=== PATIENT | female | born 1975 | race Caucasian/White ===

== ENCOUNTER 2016-11-01 16:28 | Emergency (ER) | payer OTHER ==
[2016-11-01 16:43] VITALS: BP 120/83; PULSE 116; TEMP 98.3; BMI 26.7
[2016-11-01] MEDS ORDERED: SODIUM CHLORIDE 1,000 ML IV STA (16:49)
--- NOTE | 2016-11-01 16:52 | PDOC ---
History of Present Illness - General History Source: Patient Exam Limitations: No Limitations - History of Present Illness Travel History: No Initial Comments: 11/01/16 17:00 41-year-old female presents to the ED for evaluation of continual vaginal bleeding for the past 4 months associated with a large fibroid. patient was sent here by Dr. Chadwick for admission will likely perform surgery during the stay since patient does have complaints of weakness, dizziness and fatigue. Patient denies fever, chills, dysuria, diarrhea, or nausea. Timing/Duration: reports: getting worse Quality: reports: moderate, cramping Abdominal Pain Onset Location: reports: suprapubic Pain Radiation: reports: no radiation Activities at Onset: reports: none Aggravating Factors: improves with: None Alleviating Factors: improves with: None <Neha Dorsey - Last Filed: 11/01/16 19:20> <Kiara Agrawal - Last Filed: 11/01/16 21:49> - General Chief Complaint: Vaginal Bleeding Stated Complaint: VAG BLEED Time Seen by Provider: 11/01/16 16:49 Past History - Past Medical History Asthma: No Cancer: No Cardiac Disorders: No Diabetes: No HTN: No Suicide Attempt (Hx): No Seizures: No Thyroid Disease: No Other medical history: none - Reproductive History (#): 1 - Immunization History Immunization Up to Date: Yes (traveled to [facility] from [facility] in january) - Psycho/Social/Smoking Cessation Hx Anxiety: No Suicidal Ideation: No Smoking History: Never smoked Have you smoked in the past 12 months: No Information on smoking cessation initiated: No Hx Alcohol Use: No Drug/Substance Use Hx: No Substance Use Type: None Hx Substance Use Treatment: No Patient Lives Alone: No Lives with/in: spouse/SO <Neha Dorsey - Last Filed: 11/01/16 19:20> <Kiara Agrawal - Last Filed: 11/01/16 21:49> - Past Medical History Allergies/Adverse Reactions: Allergies Allergy/AdvReac Type Severity Reaction Status Date / Time Penicillins Allergy Intermediate SWELLING. Verified 11/01/16 16:30 Home Medications: Ambulatory Orders Ibuprofen [Motrin -] 600 mg PO QID PRN 11/01/16 Oxycodone HCl/Acetaminophen [Percocet 5-325 mg Tablet] 1 - 2 tab PO Q6H PRN #20 tab MDD 6 11/01/16 Review of Systems - Review of Systems Able to Perform ROS?: Yes Constitutional: No: Symptoms Reported HEENTM: No: Symptoms Reported Respiratory: No: Symptoms reported Cardiac (ROS): No: Symptoms Reported ABD/GI: Yes: Abdominal cramping : Yes: Discharge (vaginal bleeding with clots) Musculoskeletal: No: Symptoms Reported Integumentary: No: Symptoms Reported Neurological: No: Symptoms reported Endocrine: No: Symptoms Reported Hematologic/Lymphatic: No: Symptoms Reported <Neha Dorsey - Last Filed: 11/01/16 19:20> *Physical Exam - Vital Signs Last Vital Signs Temp Pulse Resp BP Pulse Ox 98.3 F 116 H 18 120/83 100 11/01/16 16:31 11/01/16 16:31 11/01/16 16:31 11/01/16 16:31 11/01/16 16:31 - Physical Exam General Appearance: Yes: Nourished, Appropriately Dressed. No: Apparent Distress HEENT: negative: Pale Conjunctivae Neck: positive: Supple Respiratory/Chest: positive: Lungs Clear, Normal Breath Sounds. negative: Respiratory Distress, Accessory Muscle Use Cardiovascular: positive: Regular Rhythm, Tachycardia. negative: Murmur Female Pelvic Exam: positive: vaginal bleeding (bright red with clots) Gastrointestinal/Abdominal: positive: Soft, Distended (mid suprapubic), Tenderness, Mass (suprapubic) Musculoskeletal: negative: CVA Tenderness Extremity: negative: Pedal Edema Integumentary: positive: Normal Color, Warm, Moist <Neha Dorsey - Last Filed: 11/01/16 19:20> - Vital Signs Last Vital Signs Temp Pulse Resp BP Pulse Ox 98.3 F 116 H 18 120/83 100 11/01/16 16:31 11/01/16 16:31 11/01/16 16:31 11/01/16 16:31 11/01/16 16:31 <Kiara Agrawal - Last Filed: 11/01/16 21:49> Heart Score/ECG Review - ECG Intrepretation Rhythm: Regular Rhythm (rate 102 sinus rhythm.) <Neha Dorsey - Last Filed: 11/01/16 19:20> ED Treatment Course - LABORATORY CBC & Chemistry Diagram: 11/01/16 17:04 11/01/16 17:04 <Neha Dorsey - Last Filed: 11/01/16 19:20> - LABORATORY CBC & Chemistry Diagram: 11/01/16 17:04 11/01/16 17:04 - ADDITIONAL ORDERS Additional order review: Laboratory Results 11/01/16 11/01/16 11/01/16 17:04 17:04 17:04 INR Sodium 138 Potassium 4.7 Chloride 104 Carbon Dioxide 27 Anion Gap 7 L BUN 13 D Creatinine 0.6 Creat Clearance w eGFR > 60 Random Glucose 119 H D Calcium 9.3 Total Bilirubin 0.2 D AST 26 D ALT 25 D Alkaline Phosphatase 124 H D Total Protein 8.3 H Albumin 3.8 Urine Color Yellow Urine Appearance Cloudy Urine pH 6.0 Ur Specific Rowe 1.012 Urine Protein 1+ H Urine Glucose (UA) Negative Urine Ketones Negative Urine Blood 3+ H Urine Nitrite Negative Urine Bilirubin Negative Urine Urobilinogen Negative Ur Leukocyte Esterase 3+ H D Urine RBC 944 Urine WBC 288 Ur Epithelial Cells Rare Urine Bacteria Many Urine Yeast Many Urine HCG, Qual Negative Blood Type A POSITIVE Antibody Screen Negative 11/01/16 17:04 INR 1.02 Sodium Potassium Chloride Carbon Dioxide Anion Gap BUN Creatinine Creat Clearance w eGFR Random Glucose Calcium Total Bilirubin AST ALT Alkaline Phosphatase Total Protein Albumin Urine Color Urine Appearance Urine pH Ur Specific Rowe Urine Protein Urine Glucose (UA) Urine Ketones Urine Blood Urine Nitrite Urine Bilirubin Urine Urobilinogen Ur Leukocyte Esterase Urine RBC Urine WBC Ur Epithelial Cells Urine Bacteria Urine Yeast Urine HCG, Qual Blood Type Antibody Screen 11/01/16 17:04 RBC 4.21 MCV 85.4 MCHC 34.4 RDW 14.3 MPV 6.9 L Neutrophils % 62.9 Lymphocytes % 30.7 D Monocytes % 4.7 Eosinophils % 0.4 Basophils % 1.3 - Medications Given in the ED: ED Medications Discontinued Medications Generic Name Dose Route Start Last Admin Trade Name Freq PRN Reason Stop Dose Admin Sodium Chloride 1,000 mls @ 1,000 mls/hr 11/01/16 16:49 11/01/16 17:21 Normal Saline - IV 11/01/16 17:48 1,000 mls/hr ASDIR STA Administration Morphine Sulfate 4 mg 11/01/16 16:58 11/01/16 17:18 Morphine Injection - IVPUSH 11/01/16 16:59 4 mg ONCE ONE Administration <Kiara Agrawal - Last Filed: 11/01/16 21:49> Medical Decision Making - Medical Decision Making 11/01/16 178:01 Patient will continue vaginal bleeding with suspected large fibroid for the past 4 months. Patient is to be admitted to Dr. Chadwick. Patient also ordered for preop labs and ultrasound including urine . Patient also ordered for morphine secondary to discomfort and IV fluids secondary to elevated heart rate which may be related to blood volume loss versus discomfort 11/01/16 18:38 Laboratory Tests 11/01/16 11/01/16 11/01/16 17:04 17:04 17:04 WBC 8.1 Hgb 12.4 D Hct 36.0 MPV 6.9 L Neutrophils % 62.9 INR 1.02 Sodium 138 Potassium 4.7 Chloride 104 Carbon Dioxide 27 Anion Gap 7 L Creatinine 0.6 Creat Clearance w eGFR > 60 Random Glucose 119 H D Total Bilirubin 0.2 D AST 26 D ALT 25 D Alkaline Phosphatase 124 H D Total Protein 8.3 H Patient in route for ultrasound. Case discussed with Dr. Chadwick was states does want and abdominal CT with IV contrast to identify if the ureters are being compromised by the fibroid. 11/01/16 19:[address] Chadwick will agrees patient may be discharged home after the CT and ultrasound are resulted. She also recommended sending patient home with Percocet And follow-up in the clinic on so that she may be given iron tablets due to lack of insurance as a courtesy. <Neha Dorsey - Last Filed: 11/01/16 19:20> *DC/Admit/Observation/Transfer - Post Discharge Activity Activity Comments: 11/01/16 19:[address] Chadwick on and take Percocet for pain. Return to the ED if symptoms worsen. <Neha Dorsey - Last Filed: 11/01/16 19:20> <Kiara Agrawal - Last Filed: 11/01/16 21:49> Diagnosis at time of Disposition: Vaginal bleeding - Discharge Dispostion Disposition: HOME Condition at time of disposition: Good - Referrals Referrals: STAFF,NOT ON [Primary Care Provider] - Discharge Disposition - Discharge Dispostion Last Admission D/C Date: 06/28/16 <Neha Dorsey - Last Filed: 11/01/16 19:20> - Discharge Dispostion Admit: No <Kiara Agrawal - Last Filed: 11/01/16 21:49> - Diagnosis Vaginal bleeding - Discharge Dispostion Disposition: HOME Condition at time of disposition: Stable - Prescriptions Prescriptions: Oxycodone HCl/Acetaminophen [Percocet 5-325 mg Tablet] 1 - 2 tab PO Q6H PRN #20 tab MDD 6 PRN Reason: Pain - Referrals Referrals: STAFF,NOT ON [Primary Care Provider] - - Patient Instructions Printed Discharge Instructions: DI for Uterine Fibroids Additional Instructions: As discussed, please follow up with Dr. Carrera on MONDAY for further evaluation and iron supplementation. If you experience heavy vaginal bleeding ( more than one soaked pad an hour), worsening abdominal pain, fever, chills, nausea, vomiting, diarrhea, rectal bleeding, or any new or worsening symptoms, please return to the ER. Change of Disposition Decision <WillianNeha - Last Filed: 11/01/16 19:20> <Kiara Agrawal - Last Filed: 11/01/16 21:49> - Discharge/Departure ED Status: CT Discharge Diagnosis: Vaginal bleeding ED Disposition: HOME Condition: Good Referrals: STAFF,NOT ON [Primary Care Provider] - Plan - Order(s) Order(s): Orders Medication Instructions Recorded Ibuprofen [Motrin -] 600 mg PO QID PRN 11/01/16 Orders last 12 hours Category Date Time Status EKG [ELECTROCARDIOGRAM] [CARD] Stat Cardiology 11/01/16 16:57 Ordered HCG,QUALITATIVE URINE Stat Lab 11/01/16 17:04 Ordered UA [URINALYSIS] Stat Lab 11/01/16 17:04 Ordered - Laboratory CBC & Chemistry Diagram: 11/01/16 17:04 11/01/16 17:04 Lab/Micro Results: 11/01/16 11/01/16 11/01/16 17:04 17:04 17:04 INR 1.02 Sodium 138 Potassium 4.7 Chloride 104 Carbon Dioxide 27 Anion Gap 7 L BUN 13 D Creatinine 0.6 Creat Clearance w eGFR > 60 Random Glucose 119 H D Calcium 9.3 Total Bilirubin 0.2 D AST 26 D ALT 25 D Alkaline Phosphatase 124 H D Total Protein 8.3 H Albumin 3.8 Blood Type A POSITIVE Antibody Screen Negative 11/01/16 17:04 RBC 4.21 MCV 85.4 MCHC 34.4 RDW 14.3 MPV 6.9 L Neutrophils % 62.9 Lymphocytes % 30.7 D Monocytes % 4.7 Eosinophils % 0.4 Basophils % 1.3 - Medications Given in the ED: ED Medications Discontinued Medications Generic Name Dose Route Start Last Admin Trade Name Freq PRN Reason Stop Dose Admin Sodium Chloride 1,000 mls @ 1,000 mls/hr 11/01/16 16:49 11/01/16 17:21 Normal Saline - IV 11/01/16 17:48 1,000 mls/hr ASDIR STA Administration Morphine Sulfate 4 mg 11/01/16 16:58 11/01/16 17:18 Morphine Injection - IVPUSH 11/01/16 16:59 4 mg ONCE ONE Administration <Neha Dorsey - Last Filed: 11/01/16 19:20> - Order(s) Order(s): Orders Medication Instructions Recorded Ibuprofen [Motrin -] 600 mg PO QID PRN 11/01/16 Orders last 12 hours Category Date Time Status SERUM TEST Stat Lab 11/01/16 20:19 Ordered - Laboratory CBC & Chemistry Diagram: 11/01/16 17:04 11/01/16 17:04 Lab/Micro Results: 11/01/16 11/01/16 11/01/16 17:04 17:04 17:04 INR Sodium 138 Potassium 4.7 Chloride 104 Carbon Dioxide 27 Anion Gap 7 L BUN 13 D Creatinine 0.6 Creat Clearance w eGFR > 60 Random Glucose 119 H D Calcium 9.3 Total Bilirubin 0.2 D AST 26 D ALT 25 D Alkaline Phosphatase 124 H D Total Protein 8.3 H Albumin 3.8 Urine Color Yellow Urine Appearance Cloudy Urine pH 6.0 Ur Specific Rowe 1.012 Urine Protein 1+ H Urine Glucose (UA) Negative Urine Ketones Negative Urine Blood 3+ H Urine Nitrite Negative Urine Bilirubin Negative Urine Urobilinogen Negative Ur Leukocyte Esterase 3+ H D Urine RBC 944 Urine WBC 288 Ur Epithelial Cells Rare Urine Bacteria Many Urine Yeast Many Urine HCG, Qual Negative Blood Type A POSITIVE Antibody Screen Negative 11/01/16 17:04 INR 1.02 Sodium Potassium Chloride Carbon Dioxide Anion Gap BUN Creatinine Creat Clearance w eGFR Random Glucose Calcium Total Bilirubin AST ALT Alkaline Phosphatase Total Protein Albumin Urine Color Urine Appearance Urine pH Ur Specific Rowe Urine Protein Urine Glucose (UA) Urine Ketones Urine Blood Urine Nitrite Urine Bilirubin Urine Urobilinogen Ur Leukocyte Esterase Urine RBC Urine WBC Ur Epithelial Cells Urine Bacteria Urine Yeast Urine HCG, Qual Blood Type Antibody Screen 11/01/16 17:04 RBC 4.21 MCV 85.4 MCHC 34.4 RDW 14.3 MPV 6.9 L Neutrophils % 62.9 Lymphocytes % 30.7 D Monocytes % 4.7 Eosinophils % 0.4 Basophils % 1.3 - Medications Given in the ED: ED Medications Discontinued Medications Generic Name Dose Route Start Last Admin Trade Name Freq PRN Reason Stop Dose Admin Sodium Chloride 1,000 mls @ 1,000 mls/hr 11/01/16 16:49 11/01/16 17:21 Normal Saline - IV 11/01/16 17:48 1,000 mls/hr ASDIR STA Administration Morphine Sulfate 4 mg 11/01/16 16:58 11/01/16 17:18 Morphine Injection - IVPUSH 11/01/16 16:59 4 mg ONCE ONE Administration <Kiara Agrawal - Last Filed: 11/01/16 21:49>
[2016-11-01] MEDS ORDERED: morphine CARPU-JECT 2 MG/1 ML DISP.SYRIN IVPUSH ONE (16:58)
[2016-11-01] MEDS ORDERED: morphine CARPU-JECT 4 MG/1 ML DISP.SYRIN ONE (17:14)
[2016-11-01 17:15] LABS: BASOPHIL 1.3 % (0-2.0); EOSINOPHIL 0.4 % (0-4.5); MCH 29.3 pg (25.7-33.7); MCHC 34.4 g/dl (32.0-36.0); MEAN CELL VOLUME 85.4 fl (80-96); MEAN PLT VOLUME 6.9 fl (7.5-11.1); NEUTROPHILS 62.9 % (42.8-82.8); PLATELET COUNT 427 K/MM3 (134-434); RDW 14.3 % (11.6-15.6); WHITE BLOOD COUNT 8.1 K/mm3 (4.0-10.0)
[2016-11-01 17:28] LABS: INR 1.02 (0.82-1.09); PROTHROMBIN TIME (PATIENT) 11.2 SEC (9.98-11.88)
[2016-11-01 18:10] LABS: ALBUMIN 3.8 g/dl (3.4-5.0); ANION GAP 7 (8-16); CALCIUM 9.3 mg/dL (8.5-10.1); CO2 27 mmol/L (21-32); GLUCOSE,RANDOM 119 mg/dL (74-106)
[2016-11-01 18:16] LABS: ALK PHOS 124 U/L (45-117); BILIRUBIN,TOTAL 0.2 mg/dL (0.2-1.0); CREATININE 0.6 mg/dL (0.55-1.02); SGOT/AST 26 U/L (15-37); SGPT/ALT 25 U/L (12-78); TOT PROT 8.3 g/dl (6.4-8.2)
--- NOTE | 2016-11-01 19:36 | PDOC ---
*Physical Exam - Vital Signs Last Vital Signs Temp Pulse Resp BP Pulse Ox 98.3 F 116 H 18 120/83 100 11/01/16 16:31 11/01/16 16:31 11/01/16 16:31 11/01/16 16:31 11/01/16 16:31 - Physical Exam Comments: 11/01/16 19:35 Sign-out received from outgoing ER provider Willian. Pt interviewed and examined. Ancillary studies reviewed. H&H stable, plan is to send patient home with close follow up with Dr. Carrera on for iron supplementation in clinic. Awaiting serum preg, CT scan results. Urine preg neg. CT results do not indicate any obstruction of ureters. Will discharge as planned. Advised patient to take medications as prescribed and follow up with Dr. Carrera. Advised patient of signs and symptoms for return to ED; patient verbalized understanding and agrees to plan. ED Treatment Course - LABORATORY CBC & Chemistry Diagram: 11/01/16 17:04 11/01/16 17:04 - ADDITIONAL ORDERS Additional order review: Laboratory Results 11/01/16 11/01/16 11/01/16 17:04 17:04 17:04 INR 1.02 Sodium 138 Potassium 4.7 Chloride 104 Carbon Dioxide 27 Anion Gap 7 L BUN 13 D Creatinine 0.6 Creat Clearance w eGFR > 60 Random Glucose 119 H D Calcium 9.3 Total Bilirubin 0.2 D AST 26 D ALT 25 D Alkaline Phosphatase 124 H D Total Protein 8.3 H Albumin 3.8 Blood Type A POSITIVE Antibody Screen Negative 11/01/16 17:04 RBC 4.21 MCV 85.4 MCHC 34.4 RDW 14.3 MPV 6.9 L Neutrophils % 62.9 Lymphocytes % 30.7 D Monocytes % 4.7 Eosinophils % 0.4 Basophils % 1.3 - Medications Given in the ED: ED Medications Discontinued Medications Generic Name Dose Route Start Last Admin Trade Name Freq PRN Reason Stop Dose Admin Sodium Chloride 1,000 mls @ 1,000 mls/hr 11/01/16 16:49 11/01/16 17:21 Normal Saline - IV 11/01/16 17:48 1,000 mls/hr ASDIR STA Administration Morphine Sulfate 4 mg 11/01/16 16:58 11/01/16 17:18 Morphine Injection - IVPUSH 11/01/16 16:59 4 mg ONCE ONE Administration *DC/Admit/Observation/Transfer Diagnosis at time of Disposition: Vaginal bleeding - Discharge Dispostion Disposition: HOME Condition at time of disposition: Good - Prescriptions Prescriptions: Oxycodone HCl/Acetaminophen [Percocet 5-325 mg Tablet] 1 - 2 tab PO Q6H PRN #20 tab MDD 6 PRN Reason: Pain - Referrals Referrals: STAFF,NOT ON [Primary Care Provider] - - Patient Instructions Printed Discharge Instructions: DI for Uterine Fibroids Additional Instructions: As discussed, please follow up with Dr. Carrera on MONDAY for further evaluation and iron supplementation. If you experience heavy vaginal bleeding ( more than one soaked pad an hour), worsening abdominal pain, fever, chills, nausea, vomiting, diarrhea, rectal bleeding, or any new or worsening symptoms, please return to the ER.
--- NOTE | 2016-11-01 19:51 | CON.OBG ---
Consult Consult Specialty:: english drawer Referred by:: Willian Solomon Reason for Consultation:: fibroid uterus , bleeding & pain - History of Present Illness Chief Complaint: 41 yrs c/o severe abd pain pelvic for few days , intolerable since today am & heavy bleeding since her LD by c/section on 06/24/16 History of Present Illness: pt is known case of large fibroid uterus since her first pregn . pt did not have pain before but since LD by c/section she has been experiencing abd pelvic pain on &off today pain scale 10/10 . she has not stopped bleeding since LD on 06/25/16 . bleeding mild to moderate to heavy variable . she is breast feeding - History Source History Provided By: Patient, Medical Record Limitations to Obtaining History: No Limitations - Past Medical History PLANT TECH: No: Migraine, Seizure Cardio/Vascular: No: HTN, Murmur Pulmonary: No: Asthma Gastrointestinal: No: Ascites, Gastritis, GERD Hepatobiliary: No: Cirrhosis, Hepatitis A, Hepatitis B, Hepatitis C Renal/: Yes: Other (h/o frequency of urination ). No: UTI Reproductive: Yes: Other (h/o abn pap 05/21/15 LGSIL & no16/18 HR HPV pos . colposcopy unsatisfactory, ecc neg, Repeat pap in 12/08/15 ASCUS , non 16/ 18 HR HPV Pos ) ...LMP: 03/16/15 (post LD 06/25/16) ...: No ...: 2 (sp ab in 05/29/2015 ) ...Para: 1 (c/sec 06/25/16 37.5 wks male 6'13" 9/9 ) Heme/Onc: Yes: Anemia (before rx po iron & pnv ) Infectious Disease: Yes: STD's (non 16/18 HR HPV pos ). No: HIV Psych: No: Addictions, Anxiety, Depression Musculoskeletal: No: Bursitis Rheumatology: No: Vasculitis ENT: No: Allergic Rhinitis Endocrine: No: Diabetes Mellitus, Hyperthyroidism, Hypothyroidism Additional Medical History: h/o Rt breast cyst , aspiration done by Breast surgeon in 11/2015 - Past Surgical History Past Surgical History: Yes: (06/25/16 LFTC/S due to large fibroids ,.) - Alcohol/Substance Use Hx Alcohol Use: No History of Substance Use: reports: None - Smoking History Smoking history: Never smoked Have you smoked in the past 12 months: No Home Medications - Allergies Allergies/Adverse Reactions: Allergies Allergy/AdvReac Type Severity Reaction Status Date / Time Penicillins Allergy Intermediate SWELLING. Verified 11/01/16 16:30 - Home Medications Home Medications: Ambulatory Orders Ibuprofen [Motrin -] 600 mg PO QID PRN 11/01/16 Physical Exam-[facility] Vital Signs: Vital Signs Temperature 98.3 F 11/01/16 16:31 Pulse Rate 116 H 11/01/16 16:31 Respiratory Rate 18 11/01/16 16:31 Blood Pressure 120/83 11/01/16 16:31 O2 Sat by Pulse Oximetry (%) 100 11/01/16 16:31 Constitutional: Yes: Mild Distress (after receiving morphine in ER) Eyes: Yes: WNL HENT: Yes: WNL, Normocephalic Neck: Yes: WNL Cardiovascular: Yes: WNL, Tachycardia (116/min) Respiratory: Yes: WNL, CTA Bilaterally Gastrointestinal: Yes: WNL, Normal Bowel Sounds ...Rectal Exam: Yes: WNL Renal/: Yes: Menses Present (since LD), Vaginal Bleeding. No: CVA Tenderness - Left, CVA Tenderness - Right, Pelvis: Yes: Tenderness (pelvic) External Genitalia: Yes: Normal Internal Exam Deferred: Yes Vaginal Exam: Yes: Bleeding (moderate to heavy) Cervix: Yes: Normal, Bleeding Uterus: Yes: Freely Moveable, Anteverted, Enlarged (size 16 weeks size ut), Firm , Mass (fibroid ut), Tender Adnexa: Normal: Bilateral (unable to evaluate ), Not Palpable: Bilateral Breast(s): Yes: WNL Musculoskeletal: Yes: WNL Extremities: Yes: WNL. No: Calf Tenderness Edema: No Integumentary: Yes: Incision (pfannensteil incision scar) Neurological: Yes: WNL, Alert, Oriented ...Motor Strength: WNL Psychiatric: Yes: WNL, Alert, Oriented Problem List - Problems (1) Fibroid Code(s): D25.9 - LEIOMYOMA OF UTERUS, UNSPECIFIED Qualifiers: Uterine leiomyoma location: intramural Qualified Code(s): D25.1 - Intramural leiomyoma of uterus (2) Menorrhagia with irregular cycle Code(s): N92.1 - EXCESSIVE AND FREQUENT MENSTRUATION WITH IRREGULAR CYCLE Assessment/Plan 41 yrs , s/p c/section 4 months ago with multiple lfobroids, large has continuous bleeding since Ld & pain possible degenration of fibroid suspected due to involution of uterus post plan us done [id number] cm , largest fibroid posterior 9.2cmx1.5cm bulging into cavity , adnexa not well visualized ct scan to check proximity of ureters to uterus & fibroids .still pending discharge from ER po percocet PRN will schedule Abd Myomectomy posible NIKKO from the clinic
[2016-11-01 20:41] LABS: URINE APPEARANCE CLOUDY; URINE BILIRUBIN NEGATIVE (NEGATIVE); URINE COLOR YELLOW; URINE GLUCOSE (UA) NEGATIVE (NEGATIVE); URINE KETONE NEGATIVE (NEGATIVE); URINE NITRITE NEGATIVE (NEGATIVE); URINE UROBILINOGEN NEGATIVE E.U./dl (0.2-1.0)
[2016-11-01 20:42] LABS: URINE BLOOD 3+ (NEGATIVE); URINE LEUK ESTERASE 3+ (NEGATIVE); URINE PROTEIN 1+ (NEGATIVE)
[2016-11-01 20:44] LABS: URINE BACTERIA MANY /hpf (NONE SEEN); URINE RBC 944 /hpf (0-3); URINE WBC 288 /hpf (3-5); YEAST MANY
--- NOTE | 2016-11-03 00:33 | EKG ---
Test Reason : Blood Pressure : / mmHG Vent. Rate : 102 BPM Atrial Rate : 102 BPM P-R Int : 160 ms QRS Dur : 080 ms QT Int : 336 ms P-R-T Axes : 059 021 004 degrees QTc Int : 437 ms SINUS TACHYCARDIA LOW VOLTAGE QRS BORDERLINE ECG NO PREVIOUS ECGS AVAILABLE Confirmed by RADHA ZAVALETA MD ([id number]) on 11/03/2016 12:32:29 AM Referred By: Confirmed By:RADHA ZAVALETA MD
== END 2016-11-01 22:15 | disposition home or self-care (01) ==
LOC: JER 16:28 → UNDOADMOB 17:19 → JERBED 17:19 → JER 22:15
PROC: 3E033NZ Introduction of Analgesics, Hypnotics, Sedatives into Peripheral Vein, Percutaneous Approach (ICD-10-PCS; principal; 2016-11-01)
PROC: 3E0337Z Introduction of Electrolytic and Water Balance Substance into Peripheral Vein, Percutaneous Approach (ICD-10-PCS; 2016-11-01)
DX: N93.9 Abnormal uterine and vaginal bleeding, unspecified (principal); N92.1 Excessive and frequent menstruation with irregular cycle; D25.1 Intramural leiomyoma of uterus
CPT/HCPCS: 36415; 74177-TC; 76856-TC; 80053; 81003; 81015; 84703; 85025; 85610; 86850; 86900; 86901; 93005; 93010; 96361; 96374; 99285-25

== ENCOUNTER 2016-11-10 05:21 | Inpatient (IN) | payer OTHER ==
--- NOTE | 2016-11-10 10:56 | HP ---
Past Medical History - Primary Care Physician PCP:: Latisha Chadwick - Admission Chief Complaint: 41yrs known c/o Large fibroid uterus is c/o pelvic pain since LD & pain increasing for past 1 week , heavy bleding since LD is admitted for abdominal myomectomy , possible husterectomy . LD by c/section on 06/25/16 . pt c/o fever at 103 at night . History of Present Illness: pt was seen IN ER on 11/01/16 for ac pain bleeding US pelvic & CT scan was done .pt received iv fluids & pain meds was sent home CTscan report multiple fibroids, largest fibroid is 12x11.2x11 cm . kidney no hydronephrosisi . Pelvic US ut largr 18.1x 12.1x11.3 cm ,multiple post fibroids, , largest is 9.2cmx8.8x7.9 cm . Ovaries normal. Pt knows she has fibroids since her 1st in 2014. since then fibroids are enlarged in size . she was not symptomatic during last but since LD by c/section she is experiencing pain , she has been on tylenol or motrin prn & has not stopped bleeding since then. she has been taking her iron & pnv regularly Past MH : 28-30 days regular, heavy , painful . History Source: Patient, Medical Record Limitations to Obtaining History: No Limitations - Past Medical History BOX STRAPPER: No: CVA, Migraine Cardiovascular: No: HTN, Murmur Pulmonary: No: Asthma Gastrointestinal: Yes: Constipation Renal/: Yes: Other (h/o frequency of urination ). No: UTI Reproductive: Yes: Other ( 05/21/15 Pap LGSIL , NON 16/18 HPV Pos 06/30/15 Colposcopy : unsatisfactory , ecc neg 12/08/15 Pap ASCUS. pt is not ) ...: 2 ...Para: 1 (06/25/16,LFTC/S 6'13" 9/9 at 37.5 weeks ) ...Term: 1 ...Spon : 1 (05/29/15 D&c done ) Heme/Onc: Yes: Anemia (before rx po iron & pnv ) Infectious Disease: Yes: STD's (non 16/18 HR HPV pos ). No: HIV Endocrine: No: Diabetes Insipidus, Diabetes Mellitus, Hyperthyroidism Additional Medical History: h/o Rt breast cyst , aspiration done by Breast surgeon in 11/2015 - Past Surgical History Past Surgical History: Yes: (06/25/16 LFTC/S due to large fibroids ,.) Hx Myomectomy: No Hx Transabdominal Cerclage: No Additional Surgical History: h/o d&c done for sp ab in 2014 - Smoking History Smoking history: Never smoked Have you smoked in the past 12 months: No - Alcohol/Substance Use Hx Alcohol Use: No History of Substance Use: reports: None - Social History History of Recent Travel: No Home Medications - Allergies Allergies/Adverse Reactions: Allergies Allergy/AdvReac Type Severity Reaction Status Date / Time Penicillins Allergy Intermediate SWELLING. Verified 11/09/16 10:36 - Home Medications Home Medications: Ambulatory Orders Ibuprofen [Motrin -] 600 mg PO QID PRN 11/01/16 Acetaminophen 650 mg PO Q6H PRN 11/09/16 Iron,Carbonyl/Ascorbic Acid [Iron 100-Vitamin C Tablet] 1 each PO DAILY Pnv95/Ferrous Fumarate/FA [ Caplet] 1 DAILY 11/09/16 Physical Exam-FOREIGN LAW CONSULTANT Vital Signs: Temp 101 . Constitutional: Yes: Well Nourished, Mild Distress Eyes: Yes: WNL HENT: Yes: WNL Neck: Yes: WNL Cardiovascular: Yes: WNL Respiratory: Yes: WNL Gastrointestinal: Yes: WNL, Normal Bowel Sounds. No: Distention Renal/: Yes: WNL, Vaginal Bleeding. No: CVA Tenderness - Left, CVA Tenderness - Right, External Genitalia: Yes: Normal Internal Exam Deferred: Yes Vaginal Exam: Yes: Bleeding Cervix: Yes: Normal, Bleeding. No: Cerv Motion Tenderness Uterus: Yes: Anteverted, Enlarged (ut large 16-weeks enlarged , mobile , tender) , Firm, Tender Adnexa: Normal: Bilateral, Not Palpable: Bilateral Breast(s): Yes: WNL (not engorged), Other (milk secretion) Musculoskeletal: Yes: WNL, Other (pt breast feeding .) Extremities: Yes: WNL. No: Calf Tenderness Edema: No Integumentary: Yes: Incision (recent surgery, pfannensteil scar) Neurological: Yes: WNL, Alert, Oriented ...Motor Strength: WNL Psychiatric: Yes: WNL, Alert, Oriented Labs: Laboratory Tests 06/25/16 11/01/16 11/01/16 00:01 17:04 17:04 WBC 8.1 RBC 4.21 Hgb 12.4 D Hct 36.0 Plt Count 427 D Neutrophils % 62.9 Lymphocytes % 30.7 D Monocytes % 4.7 INR 1.02 Sodium Potassium Chloride Carbon Dioxide BUN Creatinine Random Glucose Uric Acid 5.5 Calcium Total Bilirubin AST ALT Alkaline Phosphatase Serum , Qual Urine Protein Urine Blood Ur Leukocyte Esterase Urine RBC Urine WBC Urine Bacteria 11/01/16 11/01/16 11/09/16 17:04 17:04 10:20 WBC RBC Hgb Hct Plt Count Neutrophils % Lymphocytes % Monocytes % INR Sodium 138 Potassium 4.7 Chloride 104 Carbon Dioxide 27 BUN 13 D Creatinine 0.6 Random Glucose 119 H D Uric Acid Calcium 9.3 Total Bilirubin 0.2 D AST 26 D ALT 25 D Alkaline Phosphatase 124 H D Serum , Qual Negative Urine Protein 1+ H Urine Blood 3+ H Ur Leukocyte Esterase 3+ H D Urine RBC 944 Urine WBC 288 Urine Bacteria Many Problem List - Problem (1) Fibroid uterus Code(s): D25.9 - LEIOMYOMA OF UTERUS, UNSPECIFIED Qualifiers: Uterine leiomyoma location: intramural Qualified Code(s): D25.1 - Intramural leiomyoma of uterus (2) Menorrhagia with irregular cycle Code(s): N92.1 - EXCESSIVE AND FREQUENT MENSTRUATION WITH IRREGULAR CYCLE (3) Pelvic pain Code(s): R10.2 - PELVIC AND PERINEAL PAIN Assessment/Plan 41 yrs Large multiple , enllarging fibroid uterus , with pelvic pain , possible degenration of fibroiid , menorrhagia, continuous non stop bleeding since LD c/section 4 months ago . Plan Abdominal Myomectomy possible Abd Hysterectomy . risk, benefits, alt not ltd to hemorrhage, infection, possible tranfusuion, injury bladder, bowel, ureter notified . Note pt has h/o 103 temp last night & 101 now , she has frequency of urination , , no dysuria ua fron 11/01 possible urine infection or possible contamination from vaginal bleeding breast is not engorged . I suspect possible UTI or due to fibroid degenration discuss with anesthesiologist, cancel the surgery due to fever plan urine c/s & cbc repeat today rx po Levaquin 500 mg bid is given
[2016-11-10] MEDS ORDERED: ROPIVACAINE HCL 0.5% 30ML VIAL ONE (13:29)
[2016-11-10] MEDS ORDERED: MIDAZOLAM HCL 2 MG/2 ML SINGLE DOSE VIAL ONE ×2 (13:34)
[2016-11-10 16:16] LABS: BASOPHIL 0.3 % (0-2.0); MCH 27.7 pg (25.7-33.7); MCHC 32.7 g/dl (32.0-36.0); MEAN CELL VOLUME 84.9 fl (80-96); MEAN PLT VOLUME 6.9 fl (7.5-11.1); NEUTROPHILS 67.4 % (42.8-82.8); PLATELET COUNT 567 K/MM3 (134-434); WHITE BLOOD COUNT 11.6 K/mm3 (4.0-10.0)
== END 2016-11-10 14:30 | disposition home or self-care (01) | DRG 532 ==
LOC: JSAMEDAYSX 05:21
PROVIDERS: ADMIT Obstetrics & Gynecology; ATTEND Obstetrics & Gynecology
DX: D25.1 Intramural leiomyoma of uterus (principal); R10.2 Pelvic and perineal pain; K59.09 Other constipation; D64.9 Anemia, unspecified; N92.1 Excessive and frequent menstruation with irregular cycle; R50.9 Fever, unspecified; Z53.8 Procedure and treatment not carried out for other reasons
CPT/HCPCS: 36415; 85025; 87086

== ENCOUNTER 2019-08-15 08:15 | Inpatient (IN) | payer OTHER ==
[2019-08-15] MEDS ORDERED: ELECTROLYTE-148 SOLN 500 ML IV ONE (09:20)
[2019-08-15 09:24] LABS: BASO % 0.3 % (0-2.0); EOS % 0.5 % (0-4.5); HEMOGLOBIN 9.3 GM/dL (10.7-15.3); LYMPH % 31.9 % (8-40); MCH 31.4 pg (25.7-33.7); MCHC 33.2 g/dl (32.0-36.0); MEAN CELL VOLUME 94.5 fl (80-96); MEAN PLT VOLUME 7.6 fl (7.5-11.1); NEUT % 59.3 % (42.8-82.8); PLATELET COUNT 145 K/MM3 (134-434); RBC 2.97 M/mm3 (3.60-5.2); RDW 14.2 % (11.6-15.6); WHITE BLOOD COUNT 3.8 K/mm3 (4.0-10.0)
[2019-08-15] MEDS ORDERED: ELECTROLYTE-148 SOLN 1,000 ML IV SCH (09:30)
[2019-08-15] MEDS ORDERED: ONDANSETRON 4 MG/2 ML VIAL IVPUSH PRN (09:31)
[2019-08-15] MEDS ORDERED: DEXAMETHASONE SOD PHOSPHATE 4 MG/1 ML VIAL ONE (09:44)
[2019-08-15] MEDS ORDERED: OXYTOCIN 10 UNITS/ML VIAL ONE ×2 (09:44→11:01)
[2019-08-15] MEDS ORDERED: KETOROLAC TROMETHAMINE 30 MG/1 ML VIAL ONE (09:44)
[2019-08-15] MEDS ORDERED: ceFAZolin SODIUM 1 GM VIAL ONE (09:44)
[2019-08-15 09:48] LABS: INR 1.08 (0.83-1.09); PROTHROMBIN TIME (PATIENT) 12.8 SEC (9.7-13.0)
[2019-08-15 09:51] LABS: ACTIVATED PTT 39.3 SECONDS (25.2-36.5)
[2019-08-15 09:55] LABS: BLOOD UREA NITROGEN 4.7 mg/dL (7-18); POTASSIUM 4.5 mmol/L (3.5-5.1)
--- NOTE | 2019-08-15 10:10 | HP ---
Past Medical History - Primary Care Physician PCP:: Latisha Chadwick - Admission Chief Complaint: 44 yrs , 36.5 weeks gestation , previous c/section with SROM 7.00 AM followed by UC . she requests for repeat c/section History of Present Illness: pnc at [address] [place] [address] . wt gain panel : 02/14/19 A Pos, Hbsag neg, hep c nr, Rpr nr, Hiv neg, Rubella immune, Varicella immune , Pap Nilm , Hpv neg , Gc/Ct neg 06/18/19 : 1 hr Gtt 177, --followed by 3 hr gtt on --- 93/230/140/157 Quantieron - neg, 08/06/19 36 weeks cultures : gc/ct neg, GBS neg , hiv neg , h/h/ 13.8 40.2 ,plt 259 sonogram done by [facility] pt was referred for genetic counselling due to AMA, but she informed M her actual age is 33 yrs NT screen & AFP neg sono 03/13/19 : 14.1 weeks,SLIUP anatomy sono wnl, no mention of fibroids 06/12/19 28.2 weeks vx, ant placenta, 2'15" ramonita 14.2 h/o GDM , diet controlled . h/o yeast infection treated during History Source: Patient, Medical Record Limitations to Obtaining History: No Limitations - Past Medical History Gastrointestinal: Yes: Constipation Renal/: No: UTI Reproductive: Yes: Fibroids (h/o fibroids known during 2016 11/2016 lospitalized for menorrhagia, anemia , ? degenration of fibroids , bleeding disorder , pt referred to [facility] . h/o hysteroscopy ? submucous myomectomy done . diagnosis of endomyometritis 12/2016), Other (h/o abn pap 05/11/15 : LSIL, hpv high risk pos 02/14/15 : NILM , HPV neg) ...: 3 ...Para: 1 (06/28/16 primary c/section for fibroids , h/o 2 pack cell transfusion ) ...Term: 1 ...: 0 ...Spon : 1 (2014 ) ...Induced : 0 ...Multiple Gestation: 0 ...LMP: 12/01/18 ... Weeks Gestation by Dates: 36.5 ...EDC by Dates: 09/07/19 ...EDC by Sono: 09/10/19 Heme/Onc: Yes: Anemia (before rx po iron & pnv ) Infectious Disease: Yes: STD's (non 16/18 HR HPV pos ). No: AIDS, HIV, Tuberculosis Psych: No: Addictions, Anxiety, Bipolar, Depression, Panic, Psychosis, Schizophrenia, Other Additional Medical History: h/o Rt breast cyst , aspiration done by Breast surgeon in 11/2015 - Past Surgical History Past Surgical History: Yes: (06/25/16 LFTC/S due to large fibroids ,.) Hx Myomectomy: Yes (? h/o hysteroscopic myomectomy at [facility] in 12/2016 ) Hx Transabdominal Cerclage: No - Smoking History Smoking history: Never smoked Have you smoked in the past 12 months: No - Alcohol/Substance Use Hx Alcohol Use: No History of Substance Use: reports: None - Social History History of Recent Travel: No Home Medications - Allergies Allergies/Adverse Reactions: Allergies Allergy/AdvReac Type Severity Reaction Status Date / Time Penicillins Allergy Intermediate SWELLING. Verified 08/15/19 09:50 - Home Medications Home Medications: Ambulatory Orders Vitamins (Sjr) - 1 tab PO DAILY tablet 11/28/16 Physical Exam - Maternity Vital Signs: Vital Signs Temperature 97.6 F 08/15/19 08:58 Pulse Rate 81 08/15/19 08:58 Respiratory Rate 20 08/15/19 08:58 Blood Pressure 110/76 08/15/19 08:58 O2 Sat by Pulse Oximetry (%) Constitutional: Yes: Well Nourished, Mild Distress Eyes: Yes: WNL HENT: Yes: WNL, Normocephalic Neck: Yes: WNL Cardiovascular: Yes: WNL, Regular Rate and Rhythm Lungs: Clear to auscultation Breast(s): Yes: WNL - Abdominal Exam/OB Fundal Height: 40 Number of Fetuses: Single Presentation: Vertex Contractions: Yes Regularity: Irregular (2-5 min) Intensity: Moderate Monitor Mode: External Heart Rate (range): 130 Heart Rate Location: Midline Category: I Accelerations: Uniform Decelerations: None - Vaginal Exam/OB Vaginal Bleediing: No Speculum Exam: Yes Dilatation (cm): FT Effacement (%): 70 Amniotic Membrane Status: Ruptured Nitrazine Test: Positive Amniotic Fluid: Yes: Clear Presentation: Vertex/Position (exam at 9.40 AM) Station: -3 - Physical Exam Musculoskeletal: Yes: WNL Extremities: Yes: WNL. No: Calf Tenderness Edema: LLE: 1+, RLE: 1+ Integumentary: Yes: Incision (pfannensteil scar) Deep Tendon Reflex Grade: Normal +2 ...Motor Strength: WNL Psychiatric: Yes: WNL, Alert, Oriented - Labs Lab Results: CBC, BMP 08/15/19 09:10 08/15/19 09:10 Laboratory Tests 08/15/19 08/15/19 09:10 09:10 PT with INR 12.80 INR 1.08 PTT (Actin FS) 39.3 H Blood Type A POSITIVE Antibody Screen Negative Hemorrhage Risk Assessment - Risk Factors Medium Risk Factors: Yes: Prior , uterine surgery,or multiple laparotomies Risk Score: 1 Risk Level: Medium Risk Problem List - Problems (1) 36 to 37 weeks gestation of Code(s): [id number] - (2) SROM (spontaneous rupture of membranes) Code(s): FUT1439 - (3) Previous section Code(s): Z98.891 - HISTORY OF UTERINE SCAR FROM PREVIOUS SURGERY (4) Labor established Code(s): DZW2403 - (5) Anemia Code(s): D64.9 - ANEMIA, UNSPECIFIED Qualifiers: Anemia type: iron deficiency Iron deficiency anemia type: inadequate dietary iron intake Qualified Code(s): D50.8 - Other iron deficiency anemias (6) Diet controlled gestational diabetes mellitus (GDM) Code(s): O24.410 - GESTATIONAL DIABETES MELLITUS IN , DIET CONTROLLED Qualifiers: Trimester: third trimester Qualified Code(s): O24.410 - Gestational diabetes mellitus in , diet controlled Assessment/Plan 44 yrs ( actual pt states she is 33 yrs old ) , , 36.5 weeks gestation , srom, GDM diet controlled , ,previous c/section , anemia in labor . Plan : Repeat LFT C/section r/b/a of c/sec discussed. since she is anemic , previous h/o transfusion , bleeding disorder & fibroids , i also discussed with her possibility of transfusion & hysterectomy in c/o emergency, hemorrhage on ,the table
[2019-08-15] MEDS ORDERED: CITRIC ACID/SODIUM CITRATE 30 ML UNIT-DOSE CUP PO ONE (10:30)
[2019-08-15] MEDS ORDERED: CLINDAMYCIN PHOSPHATE 600 MG/4 ML VIAL ONE (10:33)
[2019-08-15] MEDS ORDERED: ePHEDrine SULFATE 50 MG/1 ML AMPULE ONE (10:38)
[2019-08-15 11:30] LABS: CALCIUM 9.4 mg/dL (8.5-10.1); CREATININE 0.9 mg/dL (0.55-1.3)
[2019-08-15] MEDS ORDERED: METHYLERGONOVINE MALEATE 0.2 MG/1 ML AMP IM PRN (12:15)
[2019-08-15] MEDS ORDERED: OXYTOCIN 20 UNITS in 0.9% NS 20 UNIT/1,000 ML INFUS.BAG IV SCH (12:15)
--- NOTE | 2019-08-15 12:27 | PN ---
Progress Note (short form) - Note Progress Note: I assisted Dr. Snow at repeat section for the entirety of the case.
--- NOTE | 2019-08-15 12:28 | PN ---
Delivery - Delivery Section: Repeat, Low Flap Transverse (Indication : 36.5 weeks, previous c/s srom, in labor , anemia) Type of Anesthesia: Spinal Episiotomy/Laceration: None EBL (cc): 700 (foey out put 100 ml rosie color ) Delivery, Single - Stages of Labor Date 1st Stage Initiatied: 08/15/19 Time 1st Stage Initiated: 07:00 Date of Delivery: 08/15/19 Time of Delivery: 10:43 Time Placenta Delivered: 10:44 Placenta: Yes: Manual Removal, Uterine Exploration - Condition of Infant Building Construction Teacher/Dinkey Press Operator Present: Yes Name: Ancelmo Benítez Gender: Female Weight: 6 lb 12 oz Position: Right, OT Total Hours ROM (Hrs/Mins): 3hrs 44min - 1 Minute Total Score: 9 5 Minutes Total Score: 9 - Feeding Plan Initial Plan: Exclusive throughout hospitalization Remarks - Remarks Remarks: 44 yrs , 36.5 weeks admitted for srom, previous c/s in labor pnc at [address] [place] [address] gbs neg anemia noted intraop course uneventful clindamicin 600 mg intraop given
--- NOTE | 2019-08-15 12:34 | OP ---
Operative Note - Note: Operative Date: 08/15/19 Pre-Operative Diagnosis: 36.5 weeks, previousc/s , srom, inlabor , anemia Operation: repeat lftc/s Findings: 10.43 AM , baby girl, 9/9, wt 6'12", vx rot position Dr Benítez present in the OR Surgeon: Latisha Chadwick In Service Coordinator: Zbigniew Castillo Anesthesiologist/[employer] RADIO OPERATOR: Delfino Hernandez Anesthesia: Spinal Specimens Removed: cord segment for cord blood gas. cord blood. placenta Estimated Blood Loss (mls): 700 Drains, Volume Out (mls): 100 (monet output, rosie color ) Fluid Volume Replaced (mls): 1,100 (iv clindamicin intraop given 600 mg ) Operative Report Dictated: Yes
--- NOTE | 2019-08-15 16:11 | OP ---
DATE OF OPERATION: 08/15/2019 PREOPERATIVE DIAGNOSES: 36.5 weeks, previous section, spontaneous rupture of membranes in labor, anemia. POSTOPERATIVE DIAGNOSES: 36.5 weeks, previous section, spontaneous rupture of membranes in labor, anemia. OPERATION DONE: Repeat low-flap transverse section. SURGEON: Latisha Chadwick MD DIVIDEND DEPOSIT ENTRY CLERK SURGEON: Zbigniew Castillo MD ANESTHESIOLOGIST: RISHI Magana- RIGGING FOREMAN: Ancelmo Benítez MD ANESTHESIA: Spinal. FINDINGS: This is a 44-year-old, 3, para 1-0-1-1 who is 36.5 weeks, presented with rupture of membranes, Nitrazine positive, and cervix was fingertip, 70%, membranes ruptured and vertex presentation. She was mohini between 2 and 5 minutes regularly. PROCEDURE: Abdomen was shaved, prepped. Sue catheter was placed, and SCD stockings were placed. She was taken to the operating room table, and spinal anesthesia was given. Patient was placed in supine position. Abdomen was painted and draped in usual manner. Pfannenstiel incision was made through previous scar, skin, and subcutaneous tissue. Anterior rectus sheath was incised transversely. Bleeding points were clamped and cauterized. Rectus muscle was from the rectus sheath. Parietal peritoneum was opened vertically. Low-flap bladder peritoneum was incised transversely, and the lower uterine segment was incised transversely. Baby girl was delivered at 10:43 a.m. from ROT position. Cord was clamped. Baby was handed over to the train starter. Baby's Apgars were 9 and 9, and the weight was 6 pounds 12 ounces. Cord segment was cut for the cord blood gas, and the cord blood was collected. Placenta was removed completely with the membranes. Uterine cavity was cleaned properly, and there were no submucous fibroids, and there were no, clinically, fibroids noted. All the fibroids on the uterus and the large uterus were noted. Then, the closure of the uterine incision was done with Vicryl 1 suture. First layer was a continuous locking with a Vicryl 1 suture. Second layer was a continuous, intermittently locking with a Vicryl 1 suture. Hemostasis was checked. There were peritoneal adhesions before, and these were no different. Peritoneum was identified. So, the known bladder peritoneum was closed, and the parietal irrigation was done. Sponge, instrument, and needle count was correct, and the parietal peritoneum was closed with Vicryl 2-0 suture. Muscles were approximated together with interrupted suture underneath the rectus sheath flaps. Hemostasis was checked. Anterior rectus sheath was closed with Vicryl suture. Hemostasis was checked. Skin was released from the subcutaneous tissues, clot, and then, the subcutaneous tissue hemostasis was achieved via cauterization and the subcutaneous tissue interrupted sutures were taken with Vicryl 0 suture interrupted sutures, and the skin was approximated with clnit. Blood clots were removed from the vagina, and a pressure dressing was given. Patient was transferred to the recovery room in stable condition. Estimated blood loss was 700 mL. Urine output intraoperatively was 100 mL, it was rosie colored. She received 1100 of IV fluids and she received clindamycin 600 mg prior to the incision. Kalyn LEBRON/[id number]
[2019-08-15] MEDS: CLINDAMYCIN 600MG PREMIX IVPB 600 MG/50 ML BAG IVPB SCH (18:02)
[2019-08-16] MEDS: CLINDAMYCIN 600MG PREMIX IVPB 600 MG/50 ML BAG IVPB SCH ×2 (01:02→09:08)
[2019-08-16] MEDS: IBUPROFEN 800 MG/8 ML IJ IVPB PRN ×2 (02:00→10:51)
[2019-08-16 07:21] LABS: BASO % 0.3 % (0-2.0); EOS % 0.5 % (0-4.5); HEMATOCRIT 35.4 % (32.4-45.2); HEMOGLOBIN 12.1 GM/dL (10.7-15.3); LYMPH % 20.5 % (8-40); MCH 31.8 pg (25.7-33.7); MCHC 34.3 g/dl (32.0-36.0); MEAN CELL VOLUME 92.6 fl (80-96); MEAN PLT VOLUME 7.5 fl (7.5-11.1); MONO % 8.9 % (3.8-10.2); NEUT % 69.8 % (42.8-82.8); PLATELET COUNT 196 K/MM3 (134-434); RBC 3.82 M/mm3 (3.60-5.2); RDW 14.4 % (11.6-15.6); WHITE BLOOD COUNT 7.6 K/mm3 (4.0-10.0)
--- NOTE | 2019-08-16 07:24 | PN ---
Progress Note (short form) - Note Progress Note: pod 1 s/p c/s, doing well, no pain , no excess vaginal bleeding CBC, BMP 08/15/19 09:10 Last Vital Signs Temp Pulse Resp BP Pulse Ox 98.1 F 81 18 106/61 100 08/16/19 06:00 08/16/19 06:00 08/16/19 07:00 08/16/19 06:00 08/15/19 13:00 abdomen soft , no distension, no cva , no guarding incision dry, clean no calf tenderness plan ambulate cbc pain management
[2019-08-16] MEDS: PRENATAL VITAMINS W/ FOLIC ACID TABLET (FP) PO SCH (09:08)
[2019-08-16] MEDS: ENOXAPARIN NA (PORCINE) 40 MG/0.4 ML DISP.SYRIN SQ SCH (09:08)
--- NOTE | 2019-08-16 09:24 | PN ---
Progress Note (short form) - Note Progress Note: 44F POD#1 for c section under spinal anesthesia. Pt. doing well this am. No anesthesia related complications.
[2019-08-16] MEDS ORDERED: BISACODYL 10 MG SUPP.RECT RC PRN (12:15)
[2019-08-16] MEDS: oxyCODONE HCL 5 MG TABLET PO PRN (20:08)
[2019-08-16] MEDS: FERROUS SO4 325 MG TABLET (FP) PO SCH (21:54)
[2019-08-17] MEDS: SENNOSIDES/DOCUSATE COMBO (SENNA PLUS) TABLET (UD) PO PRN ×2 (02:50→20:39)
[2019-08-17] MEDS: SIMETHICONE 80 MG TAB.CHEW (FP) PO PRN ×2 (02:50→20:38)
[2019-08-17] MEDS: oxyCODONE HCL 5 MG TABLET PO PRN ×2 (02:51→20:39)
[2019-08-17] MEDS: IBUPROFEN 600 MG TABLET (FP) PO PRN ×2 (02:51→20:38)
[2019-08-17] MEDS: PRENATAL VITAMINS W/ FOLIC ACID TABLET (FP) PO SCH (10:00)
[2019-08-17] MEDS ORDERED: DIPHTH,PERTUSS(ACELL),TET 0.5 ML DISP.SYRIN IM ONE (10:00)
[2019-08-17] MEDS: ENOXAPARIN NA (PORCINE) 40 MG/0.4 ML DISP.SYRIN SQ SCH (10:00)
[2019-08-17] MEDS: FERROUS SO4 325 MG TABLET (FP) PO SCH ×2 (10:00→21:44)
--- NOTE | 2019-08-17 11:04 | PN ---
Post Progress Note - Subjective Subjective: c/o pain scale 6/10 voiding without difficulty bm done Post Day: 2 Type of Delivery: Repeat C/S Vital Signs: Vital Signs Temperature 97.9 F 08/17/19 10:00 Pulse Rate 80 08/17/19 10:00 Respiratory Rate 20 08/17/19 10:00 Blood Pressure 99/60 08/17/19 10:00 O2 Sat by Pulse Oximetry (%) 100 08/15/19 13:00 Breast Exam: Yes: Soft, Other (BF ). No: Engorged Uterus: Yes: Fundus Firm, Fundus above umbilicus, Non-tender Incision: Yes: Ian intact. No: Oozing, Other Abdomen/GI: Yes: Abdomen soft, Passing flatus, Tolerating PO (diet). No: Abdominal Distention, Tender Lochia: Yes: Rubra Lochia, amount: Moderate Extremities: Yes: Calves non-tender Perineum: Yes: Intact Activity: Ambulating - Labs Labs: CBC WBC 7.6 K/mm3 (4.0-10.0) 08/16/19 06:50 RBC 3.82 M/mm3 (3.60-5.2) 08/16/19 06:50 Hgb 12.1 GM/dL (10.7-15.3) 08/16/19 06:50 Hct 35.4 % (32.4-45.2) D 08/16/19 06:50 MCV 92.6 fl (80-96) 08/16/19 06:50 MCH 31.8 pg (25.7-33.7) 08/16/19 06:50 MCHC 34.3 g/dl (32.0-36.0) 08/16/19 06:50 RDW 14.4 % (11.6-15.6) 08/16/19 06:50 Plt Count 196 K/MM3 (134-434) D 08/16/19 06:50 MPV 7.5 fl (7.5-11.1) 08/16/19 06:50 Absolute Neuts (auto) 5.3 K/mm3 (1.5-8.0) 08/16/19 06:50 Neutrophils % 69.8 % (42.8-82.8) 08/16/19 06:50 Lymphocytes % 20.5 % (8-40) D 08/16/19 06:50 Monocytes % 8.9 % (3.8-10.2) 08/16/19 06:50 Eosinophils % 0.5 % (0-4.5) 08/16/19 06:50 Basophils % 0.3 % (0-2.0) 08/16/19 06:50 Nucleated RBC % 0 % (0-0) 08/16/19 06:50 Problem List - Problems (1) 36 to 37 weeks gestation of Code(s): [id number] - (2) SROM (spontaneous rupture of membranes) Code(s): NZY2137 - (3) Previous section Code(s): Z98.891 - HISTORY OF UTERINE SCAR FROM PREVIOUS SURGERY (4) Labor established Code(s): GVV6363 - (5) Anemia Code(s): D64.9 - ANEMIA, UNSPECIFIED Qualifiers: Anemia type: iron deficiency Iron deficiency anemia type: inadequate dietary iron intake Qualified Code(s): D50.8 - Other iron deficiency anemias (6) Diet controlled gestational diabetes mellitus (GDM) Code(s): O24.410 - GESTATIONAL DIABETES MELLITUS IN , DIET CONTROLLED Qualifiers: Trimester: third trimester Qualified Code(s): O24.410 - Gestational diabetes mellitus in , diet controlled (7) Status post section routine follow-up Code(s): Z39.2 - ENCOUNTER FOR ROUTINE FOLLOW-UP; Z98.891 - HISTORY OF UTERINE SCAR FROM PREVIOUS SURGERY Assessment/Plan stable plan ct po care bgm today
[2019-08-17] MEDS: ACETAMINOPHEN 325 MG TABLET (FP) PO PRN (20:39)
[2019-08-18 08:04] LABS: BASO % 0.7 % (0-2.0); EOS % 1.6 % (0-4.5); HEMATOCRIT 40.6 % (32.4-45.2); HEMOGLOBIN 13.5 GM/dL (10.7-15.3); LYMPH % 30.1 % (8-40); MCH 31.4 pg (25.7-33.7); MCHC 33.4 g/dl (32.0-36.0); MEAN CELL VOLUME 94.2 fl (80-96); MEAN PLT VOLUME 7.3 fl (7.5-11.1); MONO % 7.2 % (3.8-10.2); NEUT % 60.4 % (42.8-82.8); PLATELET COUNT 276 K/MM3 (134-434); RBC 4.31 M/mm3 (3.60-5.2); WHITE BLOOD COUNT 5.8 K/mm3 (4.0-10.0)
[2019-08-18] MEDS: ACETAMINOPHEN 325 MG TABLET (FP) PO PRN ×2 (08:45→20:08)
[2019-08-18] MEDS: IBUPROFEN 600 MG TABLET (FP) PO PRN ×2 (08:45→20:08)
--- NOTE | 2019-08-18 09:11 | PN ---
Post Progress Note - Subjective Subjective: no c/o pain , scale 5/10 max no difficulty voiding urine Post Day: 3 Type of Delivery: Repeat C/S Vital Signs: Vital Signs Temperature 98.5 F 08/17/19 22:00 Pulse Rate 90 08/17/19 22:00 Respiratory Rate 18 08/17/19 22:00 Blood Pressure 133/76 08/17/19 22:00 O2 Sat by Pulse Oximetry (%) 100 08/15/19 13:00 Breast Exam: Yes: Soft, Other (BF ). No: Engorged Uterus: Yes: Fundus Firm, Fundus below umbilicus, Non-tender Incision: Yes: Clint intact. No: Redness, Oozing Abdomen/GI: Yes: Abdomen soft, Passing flatus (bm done ), Tolerating PO (diet). No: Abdominal Distention, Tender Lochia: Yes: Rubra Lochia, amount: Small Extremities: Yes: Calves non-tender Perineum: Yes: Intact Activity: Ambulating - Labs Labs: CBC WBC 5.8 K/mm3 (4.0-10.0) 08/18/19 07:45 RBC 4.31 M/mm3 (3.60-5.2) 08/18/19 07:45 Hgb 13.5 GM/dL (10.7-15.3) 08/18/19 07:45 Hct 40.6 % (32.4-45.2) 08/18/19 07:45 MCV 94.2 fl (80-96) 08/18/19 07:45 MCH 31.4 pg (25.7-33.7) 08/18/19 07:45 MCHC 33.4 g/dl (32.0-36.0) 08/18/19 07:45 RDW 15.0 % (11.6-15.6) 08/18/19 07:45 Plt Count 276 K/MM3 (134-434) D 08/18/19 07:45 MPV 7.3 fl (7.5-11.1) L 08/18/19 07:45 Absolute Neuts (auto) 3.5 K/mm3 (1.5-8.0) 08/18/19 07:45 Neutrophils % 60.4 % (42.8-82.8) 08/18/19 07:45 Lymphocytes % 30.1 % (8-40) D 08/18/19 07:45 Monocytes % 7.2 % (3.8-10.2) 08/18/19 07:45 Eosinophils % 1.6 % (0-4.5) D 08/18/19 07:45 Basophils % 0.7 % (0-2.0) 08/18/19 07:45 Nucleated RBC % 0 % (0-0) 08/18/19 07:45 Problem List - Problems (1) 36 to 37 weeks gestation of Code(s): [id number] - (2) SROM (spontaneous rupture of membranes) Code(s): HQO1368 - (3) Previous section Code(s): Z98.891 - HISTORY OF UTERINE SCAR FROM PREVIOUS SURGERY (4) Labor established Code(s): AXE2970 - (5) Anemia Code(s): D64.9 - ANEMIA, UNSPECIFIED Qualifiers: Anemia type: iron deficiency Iron deficiency anemia type: inadequate dietary iron intake Qualified Code(s): D50.8 - Other iron deficiency anemias (6) Diet controlled gestational diabetes mellitus (GDM) Code(s): O24.410 - GESTATIONAL DIABETES MELLITUS IN , DIET CONTROLLED Qualifiers: Trimester: third trimester Qualified Code(s): O24.410 - Gestational diabetes mellitus in , diet controlled (7) Status post section routine follow-up Code(s): Z39.2 - ENCOUNTER FOR ROUTINE FOLLOW-UP; Z98.891 - HISTORY OF UTERINE SCAR FROM PREVIOUS SURGERY Assessment/Plan stable plan remove clint tomorrow discharge tomorrow.
[2019-08-18] MEDS: FERROUS SO4 325 MG TABLET (FP) PO SCH ×2 (11:11→21:39)
[2019-08-18] MEDS: ENOXAPARIN NA (PORCINE) 40 MG/0.4 ML DISP.SYRIN SQ SCH (11:11)
[2019-08-18] MEDS: PRENATAL VITAMINS W/ FOLIC ACID TABLET (FP) PO SCH (11:11)
[2019-08-18] MEDS: SIMETHICONE 80 MG TAB.CHEW (FP) PO PRN (20:08)
[2019-08-18 22:06] VITALS: TEMP 98.2
[2019-08-19] MEDS: ACETAMINOPHEN 325 MG TABLET (FP) PO PRN (02:33)
[2019-08-19] MEDS: IBUPROFEN 600 MG TABLET (FP) PO PRN (02:33)
--- NOTE | 2019-08-19 08:06 | DS ---
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 No: CVA Tenderness - Left, CVA Tenderness - Right ....Post : Yes: Uterus firm, Uterus non-tender, Moderate lochia rubra Breast(s): Yes: WNL (not engorged bf) Musculoskeletal: Yes: WNL Extremities: Yes: WNL. No: Calf Tenderness Edema: LLE: 1+, RLE: 1+ Wound/Incision: Yes: Clean/Dry, Well Approximated, Steri Strips, Open to air, [place] Removed. No: Draining, Reddened, Bleeding, Excoriated Neurological: Yes: WNL, Alert, Oriented ...Motor Strength: WNL Psychiatric: Yes: WNL, Alert, Oriented Labs: CBC, BMP 08/18/19 07:45 08/15/19 09:10 Delivery - Delivery Section: Repeat, Low Flap Transverse (Indication : 36.5 weeks, previous c/s srom, in labor , anemia) Type of Anesthesia: Spinal Episiotomy/Laceration: None EBL (cc): 700 (foey out put 100 ml rosie color ) Delivery, Single - Stages of Labor Date 1st Stage Initiatied: 08/15/19 Time 1st Stage Initiated: 07:00 Date of Delivery: 08/15/19 Time of Delivery: 10:43 Time Placenta Delivered: 10:44 Placenta: Yes: Manual Removal, Uterine Exploration - Condition of Brush Maker/Advanced Practice Provider Present: Yes Name: Ancelmo Benítez Gender: Female Weight: 6 lb 12 oz Position: Right, OT Total Hours ROM (Hrs/Mins): 3hrs 44min - 1 Minute Total Score: 9 5 Minutes Total Score: 9 - [place] Feeding Plan Initial Plan: Exclusive throughout hospitalization Remarks - Remarks Remarks: 44 yrs , 36.5 weeks admitted for srom, previous c/s in labor pnc at 2, [facility] gbs neg anemia noted intraop course uneventful clindamicin 600 mg intraop given post op course uneventful po instructions given. discharge today Discharge Summary Problems reviewed: Yes Reason For Visit: REPEAT Current Active Problems 36 to 37 weeks gestation of (Acute) Anemia (Acute) Delivery by emergency section (Acute) Diet controlled gestational diabetes mellitus (GDM) (Acute) Labor established (Acute) Previous section (Acute) SROM (spontaneous rupture of membranes) (Acute) Status post section routine follow-up (Acute) Procedures: Principal: repeat LFTC/Section Hospital Course: uneventful Health Concerns: none Plan of Treatment: contraception . has opted for vasectomy Goals: maternal & well being Condition: Stable - Instructions Diet, Activity, Other Instructions: Post Instructions DIET: Continue good diet high in protein, calcium, and iron rich foods. Drink at least eight (8) glasses of water daily in addition to other fluids. ct Regular diet MEDICATIONS: Continue vitamins and iron as previously directed. Motrin and Tylenol may be taken for minor discomfort. ACTIVITY: Mild to moderate exercise may be started in two (2) weeks. Take frequent rest periods. Resume normal activity after six (6) week check up. WOUND CARE OF OPERATIVE SITE: Continue use of perineal bottle until vaginal discharge stops. Keep area clean. Shower daily. Keep abdominal wound dry. Report any drainage or redness to physician. Tub baths, tampons and douches are not permitted for [address] Breast feeding & or Bottle feeding BREAST CARE: (For those that are not ): If engorgement occurs: Wear tight fitting bra. Take Tylenol or Motrin for pain. Apply cold packs (ice in bags to each breast ) FAMILY PLANNING: There are many control alternatives to pursue and they should be discussed at your first office visit. You may resume sexual activity after your six (6) week check up. (Remember, breast feeding is not a contraceptive) NEXT PHYSICIAN APPOINTMENT: Be certain to call for a one (1) week appointment, unless otherwise directed. RTC 1 week for wound check Call Clinic or got to Emergency Dept if you have any of the following: Heavy vaginal bleeding Painful urination Leg pain Unusual odor noted to vaginal bleeding High fever Red streaking noted on breast Referrals: Latisha Chadwick MD [Staff Physician] - Disposition: HOME - Home Medications Comprehensive Discharge Medication List: Ambulatory Orders Vitamins (Sjr) - 1 tab PO DAILY tablet 11/28/16 Acetaminophen [Tylenol .Regular Strength -] 500 mg PO Q4H PRN #30 tablet Ibuprofen [Motrin -] 600 mg PO Q4H PRN #30 tablet 08/18/19 Vitamins (Sjr) - 1 tab PO DAILY #30 tablet 08/18/19 Prescription Drug Monitoring Program (I-STOP) results: I-STOP reviewed and no issues identified
[2019-08-19 09:02] VITALS: BP 116/64; PULSE 71
[2019-08-19] MEDS: FERROUS SO4 325 MG TABLET (FP) PO SCH (09:06)
[2019-08-19] MEDS: PRENATAL VITAMINS W/ FOLIC ACID TABLET (FP) PO SCH (09:06)
[2019-08-19] MEDS: ENOXAPARIN NA (PORCINE) 40 MG/0.4 ML DISP.SYRIN SQ SCH (09:06)
[2019-08-20 10:59] LABS: POC NITRAZINE POS
--- NOTE | 2019-08-21 16:39 | PATH ---
Surgical Pathology Report Patient Name: KELLIE JAMES Med. Rec. 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 Specimen(s) Received PLACENTA Clinical History , 36.2 weeks, gestational diabetic Final Diagnosis PLACENTA, SECTION: 528 G THIRD TRIMESTER PLACENTA WITH TRIVASCULAR UMBILICAL CORD AND UNREMARKABLE PLACENTAL MEMBRANES. Electronically Signed Mallika Kauffamn M.D. Gross Description The specimen is received fresh labeled placenta and is a 528 gram, 18.0 x 15.5 x 3.0 cm. placenta with attached membranes and umbilical cord. The attached membranes are [place], translucent with focal opacities and insert marginally. The umbilical cord measures 15.5 cm. in length and averages 1.1 cm. in diameter. The cord inserts eccentrically, 4.5 cm. to the nearest margin. No true knots or strictures are identified. Cut surface of the umbilical cord reveals 3 vessels. The surface is galvin-blue with minimal fibrin deposition and appropriate caliber vessels. The maternal surface is red-brown with focal defects. Sectioning reveals red-brown, spongy parenchyma. No lesions are identified. Control Equipment Electrician sections are submitted in three cassettes as follows: 1- membrane rolls and umbilical cord; 2-3- full thickness sections of placenta. 08/19/201908/19/2019
== END 2019-08-19 12:10 | disposition home or self-care (01) | DRG 540 ==
LOC: JLDR 08:15 → J3W 13:30
PROVIDERS: ADMIT Obstetrics & Gynecology; ATTEND Obstetrics & Gynecology
PROC: 10D00Z1 Extraction of Products of Conception, Low, Open Approach (ICD-10-PCS; principal; 2019-08-15)
DX: O24.420 Gestational diabetes mellitus in childbirth, diet controlled (principal); O34.219 Maternal care for unspecified type scar from previous cesarean delivery; O99.02 Anemia complicating childbirth; Z3A.37 37 weeks gestation of pregnancy; Z37.0 Single live birth
CPT/HCPCS: 36415; 36600; 80048; 82803; 82962; 83986-QW; 85025; 85610; 85730; 86593; 86850; 86900; 86901; 86922; 88307-TC; 90715